=== PATIENT | female | born 1985 | race African-American/Black ===

== ENCOUNTER 2024-01-20 14:45 | Inpatient (IN) | payer BC ==
[2024-01-20 15:16] LABS: Absolute Eosinophils 0.1 K/uL (0-0.5); Absolute Lymphocytes (CBC) 2.9 K/uL (0.7-4.9); Absolute Monocytes 0.7 K/uL (0.1-1.3); Absolute Neutrophil 2.9 K/uL (1.8-8.0); Basophils % 0.4 % (0-1.3); Eosinophils % 2.1 % (0-4.4); Hemoglobin 10.7 g/dL (12.0-15.0); Lymphocytes % 43.2 % (15.3-44.8); MCH 22.3 pg (27.0-35.0); MCHC 31.6 g/dL (32.0-36.0); MCV 70.7 fL (80-100); MPV 8.2 fL (7.6-11.3); Monocytes % 10.8 % (3.3-12.3); Neutrophils % 43.5 % (41.7-73.7); Platelets 307 thou/uL (152-406); RBC Red Blood Cell Count 4.81 M/uL (3.86-4.86); Red Cell Distribution Width 14.9 % (12.1-15.2)
[2024-01-20 15:22] LABS: Arterial Blood Carboxyhemoglob 1.1 % (0-1.5); Blood Gas Oxyhemoglobin 90.9 % (94-97); Blood Gas THB 11.1 g/dl (12-18); Blood O2 Saturation 93.8 % (92-98.5)
[2024-01-20 15:41] LABS: ALT/SGPT 33 U/L (13-56); AST/SGOT 21 U/L (15-37); Albumin 2.9 g/dL (3.4-5.0); Albumin/Globulin Ratio 0.7 (1.1-1.8); Alkaline Phosphatase 153 U/L (45-117); Anion Gap 9.9 mEq/L (5.0-15.0); BUN Blood Urea Nitrogen 11 mg/dL (7-18); Bicarbonate 21 mEq/L (21-32); Bilirubin Direct < 0.2 mg/dL (0-0.2); Bilirubin Total 0.2 mg/dL (0.2-1.0); Globulin 4.4 g/dL (2.3-3.5); Glomerular Filtration Rate 126 ml/min (=/>90); Glucose Level 126 mg/dL (74-106); Magnesium 1.6 mg/dL (1.6-2.4); Potassium 3.9 mEq/L (3.5-5.1); Protein, Total 7.3 g/dL (6.4-8.2); Sodium Level 136 mEq/L (136-145)
[2024-01-20 15:42] LABS: Troponin High Sensitivity 178.9 pg/mL (<58.9)
--- NOTE | 2024-01-20 16:00 | RAD REPORT ---
EXAM DESCRIPTION: CT - Head Brain Wo Cont - 01/20/2024 3:11 pm CLINICAL HISTORY: ams COMPARISON: No comparisons TECHNIQUE: Noncontrast head CT images were obtained without IV contrast. Multiplanar reformats were generated and reviewed. All CT scans are performed using dose optimization technique as appropriate and may include automated exposure control or mA/KV adjustment according to patient size. FINDINGS: No intracranial hemorrhage, mass, or edema. Midline structures are unremarkable. Normal ventricular caliber for age. Pedroza-white matter differentiation is preserved, without evidence of acute infarct. No abnormal extra- axial fluid collections. Mastoid air cells and visualized portions of the paranasal sinuses are clear. No acute bony findings. IMPRESSION: No evidence of an acute intracranial process.
--- NOTE | 2024-01-20 16:02 | RAD REPORT ---
EXAM DESCRIPTION: [facility] Single View01/20/2024 3:28 pm CLINICAL HISTORY: ams COMPARISON: No comparisons TECHNIQUE: Portable AP view of the chest. FINDINGS: Mild central interstitial prominence versus decreased soft tissue related attenuation. The lungs are otherwise clear. No pneumothorax or effusion. The cardiomediastinal contours are unremark able. IMPRESSION: Questionable mild central interstitial prominence which may relate to mild central conge stion. No other acute cardiopulmonary process.
[2024-01-20] MEDS ORDERED: NA CHLORIDE 0.9% 1,000 ML ONE (16:17)
[2024-01-20 17:30] LABS: Specific Gravity < 1.005 (1.005-1.030); Sqamous Epithelial None Seen /HPF (None Seen); Urine Bacteria None Seen /HPF (<20); Urine Bilirubin NEGATIVE (Negative); Urine Blood 1+ (Negative); Urine Clarity Clear (Clear); Urine Color Colorless (Yellow); Urine Culture Reflex Order NOT NEEDED; Urine Glucose NEGATIVE (Negative); Urine Ketones NEGATIVE (Negative); Urine Micro Reflex YN NO BILL MICROSCOPIC; Urine Nitrite NEGATIVE (Negative); Urine Protein NEGATIVE (Negative); Urine RBC None Seen /HPF (None Seen); Urine Urobilinogen Normal (Normal); Urine WBC <5 /HPF (<5)
[2024-01-20 17:37] LABS: Barbiturates NEGATIVE (NEGATIVE); Benzodiazepines NEGATIVE (NEGATIVE); Cocaine NEGATIVE (NEGATIVE); METHAMPHETAM NEGATIVE (NEGATIVE); Methadone NEGATIVE (NEGATIVE); Opiates NEGATIVE (NEGATIVE); Phencyclidine NEGATIVE (NEGATIVE); THC Cannibis NEGATIVE (NEGATIVE)
--- NOTE | 2024-01-20 18:03 | ER ---
Nurse's Notes [facility] Name: Amanda Russell Age: 38 yrs Sex: Female : 1985 Arrival Date: 01/20/2024 Time: 14:45 Bed 13 Private MD: Diagnosis: Altered mental status;Elevated troponin Presentation: 01/19 14:51 Chief complaint: EMS states: "Has been having a headache for past several days, showed cp4 up to work today feeling disoriented". 14:51 Coronavirus screen: At this time, the client does not indicate any symptoms associated cp4 with coronavirus-19. Ebola Screen: No symptoms or risks identified at this time. Initial Sepsis Screen: Does the patient meet any 2 criteria? HR > 90 bpm. Yes Does the patient have a suspected source of infection? No. Patient's initial sepsis screen is negative. Risk Assessment: Do you want to hurt yourself or someone else? Patient reports no desire to harm self or others. Onset of symptoms was January 20, 2024. 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 - Infectious Disease History:: Denies. - Social history:: Smoking status: Patient denies any tobacco usage or history of. - Family history:: not pertinent. Screenin:52 [facility] ED Fall Risk Assessment (Adult) History of falling in the last 3 months, cp4 including since admission No falls in past 3 months (0 pts) Confusion or Disorientation Yes (5 pts) Intoxicated or Sedated No (0 pts) Impaired Gait No (0 pts) Mobility Assist Device Used No (0 pt) Altered Elimination No (0 pt) Score/Fall Risk Level 0 - 2 = Low Risk Oriented to surroundings, Maintained a safe environment. 14:52 Abuse screen: Denies threats or abuse. Nutritional screening: No deficits noted. cp4 Tuberculosis screening: No symptoms or risk factors identified. Assessment: 14:52 General: Appears uncomfortable, Behavior is cooperative, agitated. Pain: Complains of cp4 pain in head Pain currently is 5 out of 10 on a pain scale. Quality of pain is described as aching, Pain began 2-3 days ago. Is continuous. Neuro: Level of Consciousness is awake, alert, obeys commands, Oriented to person, place, time, situation. Cardiovascular: Patient's skin is warm and dry. Rhythm is regular. Respiratory: Airway is patent Respiratory effort is even, unlabored, Respiratory pattern is regular, symmetrical. GI: Abdomen is round non-distended, Abd is soft and non tender X 4 quads. : No signs and/or symptoms were reported regarding the genitourinary system. EENT: No signs and/or symptoms were reported regarding the EENT system. Derm: Skin is intact. 14:52 Musculoskeletal: Range of motion: intact in all extremities. cp4 15:08 Reassessment: Pt to CT scan via stretcher . aa5 Vital Signs: 14:51 BP 157 / 104; Pulse 117; Resp 18; Pulse Ox 99% on R/A; cp4 16:41 BP 150 / 104; Pulse 104; Resp 18; Pulse Ox 100% ; cp4 18:48 BP 104 / 88; Pulse 103; Resp 18; Pulse Ox 99% ; cp4 ED Course: 14:50 Patient arrived in ED. rg4 14:52 Patient has correct armband on for positive identification. Placed in gown. Bed in low cp4 position. Call light in reach. Side rails up X2. 14:52 No provider procedures requiring assistance completed. cp4 14:54 Juan David Galo MD is Attending Physician. rt 15:00 Triage completed. cp4 15:05 Initial lab(s) drawn, by me, sent to lab. aa5 15:05 Maintain EMS IV. Dressing intact. Good blood return noted. Site clean \\T\\ dry. Gauge \\T\\ aa 5 site: 20 G to R AC . 15:12 CT Head Brain wo Cont In Process Unspecified. EDMS 15:27 XRAY Chest (1 view) In Process Unspecified. EDMS 15:29 Karine Pascual is Primary Nurse. cp4 17:16 PREGU Sent. cp4 17:16 UAM Sent. cp4 17:16 UDS Sent. cp4 17:17 Urine collected: clean catch specimen, clear. cp4 18:01 Prince Eduardo MD is Hospitalizing Provider. rt 19:36 Patient admitted, IV remains in place. cp4 19:37 Provided Education on: admission. cp4 19:37 Arm band placed on right wrist. Patient placed in an exam room, on a stretcher. cp4 Administered Medications: 16:20 Drug: NS 0.9% IV 1000 ml IV at 1 bolus Per protocol; 1000 mL bolus Route: IV; Rate: 1 cp4 bolus; Site: right antecubital; 18:56 Follow up: Response: No adverse reaction; IV Status: Completed infusion cp4 Medication: 15:07 VIS not applicable for this client. cp4 Outcome: 18:02 Decision to Hospitalize by Provider. rt 19:36 Admitted to Med/surg accompanied by tech, via wheelchair, with chart, cp4 19:36 Condition: stable 19:36 Instructed on the need for admit, 19:37 Patient left the ED. cp4 Signatures: Dispatcher [employer] EDDahlia Dillon RN RN aa5 Chary Pizarro rg4 Juan David Galo MD MD rt Karine Pascual cp4
--- NOTE | 2024-01-20 18:03 | EDPHYS ---
Physician Documentation [facility] Name: Amanda Russell Age: 38 yrs Sex: Female : 1985 Arrival Date: 01/20/2024 Time: 14:45 Bed 13 Private MD: ED Physician Juan David Galo HPI: 01/19 16:16 This 38 yrs old Black Female presents to ER via EMS with complaints of Altered Mental rt Status. 16:16 Patient presents to the ED with an altered mental status. 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 Reportedly has been having a headache off and on for the past week. Patient presented and was significantly confused today. No further history could be obtained. Symptoms are moderate in severity, no other aggravating or alleviating factors.. 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 - Infectious Disease History:: Denies. - Social history:: Smoking status: Patient denies any tobacco usage or history of. - Family history:: not pertinent. ROS: 16:16 Unable to obtain ROS due to altered mental status, rt Exam: 16:16 Chest/axilla: Normal chest wall appearance and motion. Nontender with no deformity. rt No lesions are appreciated. Cardiovascular: Regular rate and rhythm with a normal S1 and S2. No gallops, murmurs, or rubs. Normal PMI, no JVD. No pulse deficits. Respiratory: Lungs have equal breath sounds bilaterally, clear to auscultation and percussion. No rales, rhonchi or wheezes noted. No increased work of breathing, no retractions or nasal flaring. Abdomen/GI: Soft, non-tender, with normal bowel sounds. No distension or tympany. No guarding or rebound. No evidence of tenderness throughout. Skin: Warm, dry with normal turgor. Normal color with no rashes, no lesions, and no evidence of cellulitis. MS/ Extremity: Pulses equal, no cyanosis. Neurovascular intact. Full, normal range of motion. 16:16 Constitutional: The patient appears Confused, uncooperative 16:16 ECG was reviewed by the Attending Physician. 16:16 Neuro: Clearly confused, moves all 4 extremities equally, strength and sensation intact in upper and lower extremities, no obvious cranial nerve deficits, Vital Signs: 14:51 BP 157 / 104; Pulse 117; Resp 18; Pulse Ox 99% on R/A; cp4 16:41 BP 150 / 104; Pulse 104; Resp 18; Pulse Ox 100% ; cp4 18:48 BP 104 / 88; Pulse 103; Resp 18; Pulse Ox 99% ; cp4 MDM: 14:54 Patient medically screened. rt 18:02 Differential Diagnosis: Substance abuse, head injury, intracranial hemorrhage, rt dysrhythmia. Data reviewed: vital signs, nurses notes, lab test result(s), EKG, radiologic studies. Consideration of Admission/Observation Patient was admitted/placed on observation. Management of patient was discussed with the following: Hospitalist: Agrees to admit. I considered the following discharge prescriptions or medication management in the emergency department Medications were administered in the Emergency Department. See MAR. Independent interpretation of the following test(s) in the Emergency Department CT Scan: My interpretation is No intracranial hemorrhage seen on my interpretation of CT scan images. Care significantly affected by the following chronic conditions: Hypertension. Counseling: I had a detailed discussion with the patient and/or guardian regarding the historical points, exam findings, and any diagnostic results supporting the discharge/admit diagnosis, lab results, radiology results, the need for further work-up and treatment in the hospital. Response to treatment: the patient's symptoms have markedly improved after treatment. 01/19 14:57 Order name: Basic Metabolic Panel; Complete Time: 15:44 rt 01/19 14:57 Order name: CBC with Diff; Complete Time: 15:44 rt 01/19 14:57 Order name: LFT's; Complete Time: 15:44 rt 01/19 14:57 Order name: Magnesium; Complete Time: 15:44 rt 01/19 14:57 Order name: Troponin HS; Complete Time: 15:44 rt 01/19 14:57 Order name: ETOH Level; Complete Time: 15:44 rt 01/19 14:57 Order name: UDS; Complete Time: 17:38 rt 01/19 14:57 Order name: UAM; Complete Time: 17:38 rt 01/19 14:57 Order name: PREGU; Complete Time: 17:38 rt 01/19 14:57 Order name: ABG: vbg ok; Complete Time: 15:44 rt 01/19 15:42 Order name: CPK; Complete Time: 16:10 aa5 01/19 14:57 Order name: XRAY Chest (1 view); Complete Time: 16:10 rt 01/19 14:57 Order name: CT Head Brain wo Cont; Complete Time: 16:10 rt 01/19 18:20 Order name: Brain Wo Cont EDMS 01/19 14:57 Order name: EKG; Complete Time: 14:58 rt 01/19 14:57 Order name: Cardiac monitoring; Complete Time: 15:08 rt 01/19 14:57 Order name: EKG - Nurse/Tech; Complete Time: 15:26 rt 01/19 14:57 Order name: IV Saline Lock; Complete Time: 15:08 rt 01/19 14:57 Order name: Labs collected and sent; Complete Time: 15:08 rt 01/19 14:57 Order name: O2 Per Protocol; Complete Time: 15:08 rt 01/19 14:57 Order name: O2 Sat Monitoring; Complete Time: 15:08 rt EC:16 Rate is 101 beats/min. Rhythm is regular, Normal Sinus Rhythm with No ectopy. QRS [place] rt is Normal. TN interval is normal. QRS interval is normal. QT interval is normal. No Q waves. T waves are Normal. No ST changes noted. Interpreted by me. Administered Medications: 16:20 Drug: NS 0.9% IV 1000 ml IV at 1 bolus Per protocol; 1000 mL bolus Route: IV; Rate: 1 cp4 bolus; Site: right antecubital; 18:56 Follow up: Response: No adverse reaction; IV Status: Completed infusion cp4 Disposition Summary: 01/20/24 18:02 Hospitalization Ordered Notes: Hospitalization Status: Observation rt Provider: Prince Jayce rt Location: Telemetry/MedSurg (observation) rt Condition: Stable rt Problem: new rt Symptoms: have improved rt Bed/Room Type: Standard rt Room Assignment: 411(01/20/24 18:32) bc6 Diagnosis - Altered mental status rt - Elevated troponin rt Forms: - Medication Reconciliation Form rt - SBAR form rt - Leadership Thank You Letter rt Signatures: Dispatcher [employer] Juan David Noble MD MD rt Yue Tinoco bc6 Karine Pascual cp4 Corrections: (The following items were deleted from the chart) 14:58 14:57 BASIC METABOLIC PANEL+C.LAB.BRZ ordered. EDMS EDMS 14:58 14:57 CBC+H.LAB.BRZ ordered. EDMS EDMS 14:58 14:57 HEPATIC FUNCTION+C.LAB.BRZ ordered. EDMS EDMS 14:58 14:57 MAGNESIUM+C.LAB.BRZ ordered. EDMS EDMS 14:58 14:57 Troponin High Sensitivity+C.LAB.BRZ ordered. EDMS EDMS 14:58 14:57 ETHANOL+C.LAB.BRZ ordered. EDMS EDMS 14:58 14:57 URINE DRUG SCREEN+UC.LAB.BRZ ordered. EDMS EDMS 14:58 14:57 Urinalysis W/Microscopic+U.LAB.BRZ ordered. EDMS EDMS 14:58 14:57 Test, Urine+UC.LAB.BRZ ordered. EDMS EDMS 18:32 18:02 rt bc6
--- NOTE | 2024-01-20 18:28 | P.HP ---
Certification for Inpatient Patient admitted to: Inpatient With expected LOS: >2 Midnights Practitioner: I am a practitioner with admitting privileges, knowledge of patient current condition, hospital course, and medical plan of care. Services: Services provided to patient in accordance with Admission requirements found in Title 42 Section 412.3 of the Code of Federal Regulations Patient History Date of Service: 01/20/24 Reason for admission: cva rule out History of Present Illness: Patient is a 38-year-old -[place] male with a past medical history of hypertension and thyroid disease but noncompliant on medications. She presented to the ER complaining of intractable headache ongoing for the past 2 weeks. Her symptoms been progressively worsening. Eventually the patient started experiencing left-sided weakness. Other associated symptoms include chest pain and palpitations. She was brought in here in the ER for further evaluation. CT head ruled out intracranial bleeding. Patient has a troponin of 178. Her EKG showed sinus tachycardia without ST depressions or elevations. During my evaluation, patient's vitals were within normal limits. She has left-sided weakness both upper and lower extremities. Allergies No Known Allergies Allergy (Verified 01/20/24 19:58) Home Medications: methIMAzole [Tapazole] 10 mg PO DAILY 01/20/24 Physical Examination - Physical Exam General: Other (Lethargic for age) HEENT: Atraumatic, Normocephalic Respiratory: Clear to auscultation bilaterally, Normal air movement Cardiovascular: No edema, Normal pulses, Regular rate/rhythm, Other (Tachycardic) Neurological: Other (Left-sided weakness) - Studies Laboratory Data (last 24 hrs) 01/20/24 01/20/24 15:05 15:05 WBC 6.70 Hgb 10.7 L Hct 34.0 L Plt Count 307 Sodium 136 Potassium 3.9 BUN 11 Creatinine 0.47 L Glucose 126 H Magnesium 1.6 Total Bilirubin 0.2 AST 21 ALT 33 Alkaline Phosphatase 153 H Assessment and Plan - Problems (Diagnosis) (1) Elevated troponin Current Visit: Yes Status: Acute (2) Left-sided weakness Current Visit: Yes Status: Acute (3) Intractable headache Current Visit: Yes Status: Acute (4) Hypertension Current Visit: Yes Status: Acute - Plan Assessment Patient is a 38-year-old -[place] female with a past medical history of hypertension and thyroid disease who is being admitted after she presented with intractable headache and left-sided weakness. CT head ruled out intracranial abnormalities. Patient has elevated troponin at 178. She had complained of c hest pain at some point. Her EKG showed sinus tachycardia. Additional workup revealed suppressed TSH and elevated free T4 and free T3. Her symptoms could also be explained by thyroid storm. Thyrotoxicosis Will admit patient's under telemetry EKG with sinus tachycardia Will start patient on scheduled propranolol, PTU and IV hydrocortisone Repeat thyroid function test 1 to 2 days She can be discharged on methimazole, which is her usual medication but she has been noncompliant. Headache and left-sided weakness She will be admitted under observation for CVA rule out We will get a formal brain MRI and CT head and neck 2D echo ordered as well Follow lipid panel and hemoglobin A1c PT/OT ordered for weakness Elevated troponin Patient has a history of hypertension but noncompliant on medications She is tachycardic. This can now explain her troponin leak. EKG without ischemic changes Other reason include pulmonary embolism although she is a low risk. She is not hypoxic Will go ahead and trend troponin, obtain D-dimer 2D echo ordered Follow lipid panel and hemoglobin A1c Will admit under telemetry Hypertension Start antihypertensive regimen once CVA has been ruled out Microcytic anemia Mild iron deficiency anemia as per iron panel Hb of 10.1 Will hold off iron transfusion She can be discharged on oral iron therapy DVT prophylaxisLovenox DispoHome when medically cleared CODE STATUSfull code - Advance Directives Does patient have a Living Will: No Does patient have a Durable POA for Healthcare: No
[2024-01-20] MEDS: ASPIRIN EC 81 MG TAB PO ONE (18:59)
[2024-01-20] MEDS: KETOROLAC 30 MG/ML INJ IV ONE (20:16)
[2024-01-20] MEDS: ATORVASTATIN 40 MG TAB PO SCH (20:16)
--- NOTE | 2024-01-20 20:50 | RAD REPORT ---
EXAM DESCRIPTION: CT - Head angio - 01/20/2024 7:07 pm CLINICAL HISTORY: r/o cva COMPARISON: Head Brain Wo Cont dated 01/20/2024 TECHNIQUE: Axial CT angiography images of the head was performed with multiplanar and maximum intens ity projection reconstructions. Images performed following intravenous administration of 92mL Isovue 370. All CT scans are performed using dose optimization technique as appropriate and may include automated exposure control or mA/KV adjustment according to patient size. FINDINGS: No evidence of large vessel occlusion. No evidence of aneurysm or dissection flap is detec vernon. No flow-limiting stenosis or vascular malformation identified. Antegrade flow is seen in the vertebral arteries. The vertebral arteries are codominant. The visualized dural venous sinuses are grossly patent. IMPRESSION: No evidence of large vessel occlusion or flow-limiting stenosis.
--- NOTE | 2024-01-20 20:52 | RAD REPORT ---
EXAM DESCRIPTION: CT - Neck Angio - 01/20/2024 7:08 pm CLINICAL HISTORY: r/o cva COMPARISON: No comparisons TECHNIQUE: Axial CT angiography images of the neck was performed with multiplanar and maximum intens ity projection reconstructions. Images performed following intravenous administration of 92mL Isovue 370. All CT scans are performed using dose optimization technique as appropriate and may include automated exposure control or mA/KV adjustment according to patient size. Quantification of carotid stenosis, if any, is performed according to NASCET criteria. FINDINGS: A left aortic arch is identified with normal three vessel configuration of the great vesse ls. No significant flow abnormality is seen of the common carotid bilaterally. No significant stenosis is identified involving the cervical segments of both internal carotid arteri es. Normal flow is seen within both vertebral arteries. IMPRESSION: No significant flow abnormality of the neck vessels is identified. CAROTID STENOSIS REFERENCE USING NASCET CRITERIA: % ICA stenosis = (1 - narrowest ICA diameter/diameter of distal cervical ICA) x 100. Mild - <50% stenosis. Moderate - 50-69% stenosis. Severe - 70-94% stenosis. Near occlusion - 95-99% stenosis. Occluded - 100% stenosis.
[2024-01-20 21:11] LABS: Ferritin 46.6 ng/mL (8-388); HDL Cholesterol 61 mg/dL (40-60); LDL Cholesterol, Calculated 69 mg/dL (<130); LDL Cholesterol,Calc NonReport 69
[2024-01-20 21:16] LABS: Thyroid Stimulating Hormone < 0.005 uIU/mL (0.358-3.740)
[2024-01-20] MEDS: ACETAMINOPHEN 325 MG TABLET PO PRN (21:36)
[2024-01-20] MEDS: PROPRANOLOL HCL 60 MG SA CAP PO SCH (21:41)
[2024-01-20] MEDS: PROPYLTHIOURACIL 50 MG TAB PO SCH ×2 (21:41→23:00)
[2024-01-20] MEDS: HYDROCORTISONE SUC 100 MG INJ IV SCH (22:26)
[2024-01-20 22:54] VITALS: BMI 27.2
[2024-01-20] MEDS: PROPRANOLOL HCL 10 MG TAB PO SCH (23:07)
[2024-01-21] MEDS: MELATONIN 3 MG TABLET PO PRN ×3 (00:49→22:53)
[2024-01-21] MEDS: BENZONATATE 100 MG CAP PO PRN (00:49)
[2024-01-21] MEDS: ZOLPIDEM TARTRATE 5 MG TABLET PO PRN ×2 (04:11→21:29)
--- NOTE | 2024-01-21 08:56 | RAD REPORT ---
EXAM DESCRIPTION: CT - Chest Angio - 01/21/2024 8:28 am CLINICAL HISTORY: R/O PE COMPARISON: Chest Single View dated 01/20/2024 TECHNIQUE: Thin axial CT images of the chest were obtained following administration of 85 mL Isovue 370 IV contrast. Multiplanar reconstructions, and maximum intensity projection reconstructions were g enerated and reviewed. Exam utilizes a protocol for optimal evaluation of pulmonary arterial tree. All CT scans are performed using dose optimization technique as appropriate and may include automated exposure control or mA/KV adjustment according to patient size. FINDINGS: Pulmonary arteries are normal. No emboli or other suspicious finding. No acute or signific ant aorta findings. No mass or infiltrate in the lung parenchyma. No pleural thickening or pleural effusion. No pneumotho rax. No abnormal mediastinal or hilar masses or lymphadenopathy seen. No chest wall mass or abnormal axill iary lymphadenopathy. IMPRESSION: No evidence of acute central pulmonary emboli. Negative CT scan of the chest for other significant findings.
[2024-01-21] MEDS: ASPIRIN EC 81 MG TAB PO SCH (09:34)
[2024-01-21] MEDS: ENOXAPARIN 80 MG/0.8 ML SQ SCH (09:36)
--- NOTE | 2024-01-21 09:52 | RAD REPORT ---
EXAM DESCRIPTION: MRI - Brain Wo Cont - 01/21/2024 9:23 am CLINICAL HISTORY: cva; left side weakness COMPARISON: Head CT 01/20/2024 TECHNIQUE: Multiplanar multisequence MRI of the brain performed without IV contrast. FINDINGS: No evidence of acute infarct or other diffusion signal abnormality. No evidence of acute intracranial hemorrhage or abnormal extra-axial fluid collections. Ventricular caliber within normal for age. Midline structures are unremarkable. No white matter signal abnormalities. No mass effect or midline shift. Major vascular flow voids are preserved. Mastoid air cells are well aerated. Mild inflammatory mucosal thickening in the left maxillary sinus and right ethmoidal air cells. IMPRESSION: No acute intracranial process. No evidence of ventriculomegaly or mass effect. Mild inflammatory paranasal sinus mucosal thickening.
--- NOTE | 2024-01-21 15:41 | EKG ---
Test Date: 2024-01-21 Test Time: 03:09:55 Mining Captain: FELICITA, MEASUREMENT RESULTS: Intervals: Rate: 92 SC: 126 QRSD: 80 QT: 346 QTc: 427 [place]: P: 10 SC: 126 QRS: 92 T: 9 INTERPRETIVE STATEMENTS: Normal sinus rhythm Possible Right ventricular hypertrophy Abnormal ECG Compared to ECG 01/20/2024 15:23:14 Sinus tachycardia no longer present Electronically Signed On 01-21-24 15:40:22 CDT by Aditya Arora
--- NOTE | 2024-01-21 15:43 | EKG ---
Test Date: 2024-01-20 Test Time: 15:23:14 Bridge Opener: FUENTES MEASUREMENT RESULTS: Intervals: Rate: 101 [place]: 132 QRSD: 82 QT: 344 QTc: 446 [place]: P: 66 [place]: 132 QRS: 79 T: 56 INTERPRETIVE STATEMENTS: Sinus tachycardia Otherwise normal ECG No previous ECG available for comparison Electronically Signed On 01-21-24 15:41:06 CDT by Aditya Arora
--- NOTE | 2024-01-21 17:16 | P.PN ---
Subjective Date of Service: 01/21/24 Chief Complaint: cva rule out Pt is resting comfortably in bed. She reports slight chest pain with deep inspiration. The left sided numbness has resolved. CTA chest is unremarkable. MRI brain and CTA head /neck are unremarkable. She has not been compliant with methimazole at home. She is ins search of a new artifacts conservator. No other complaints. Review of Systems General: Unremarkable Eyes: Unremarkable ENT: Unremarkable Respiratory: Unremarkable Cardiovascular: Unremarkable Gastrointestinal: Unremarkable Genitourinary: Unremarkable Musculoskeletal: Unremarkable Integumentary: Unremarkable Neurological: Unremarkable Lymphatics: Unremarkable Physical Examination - Vital Signs Temperature: 97.1 F Blood Pressure: 162/87 Pulse: 89 Respirations: 16 Pulse Ox (%): 100 - Physical Exam General: Alert, In no apparent distress, Oriented x3 HEENT: Atraumatic, Normocephalic, PERRLA Neck: Supple, 2+ carotid pulse no bruit Respiratory: Clear to auscultation bilaterally, Normal air movement Cardiovascular: No edema, Normal pulses, Regular rate/rhythm Capillary refill: <2 Seconds Gastrointestinal: Normal bowel sounds, Soft and benign, Non-distended Musculoskeletal: No clubbing, No swelling, No contractures Integumentary: No rashes, No breakdown, No significant lesion Neurological: Normal speech, Normal strength at 5/5 x4 extr, Normal tone Lymphatics: No axilla or inguinal lymphadenopathy Assessment And Plan - Plan Thyrotoxicosis: TSH is 0.005 ad free t4 is 4.19. Pt is not compliant with methimazole at home. Will continue propranolol, hydrocortisone and methimazole. She need to follow with an artifacts conservator. Headache and left-sided weakness: CT head and MRI brain are unremarkable. CTA head/neck is unremarkable. Will f/u 2D echo, lipid panel and hemoglobin A1c PT/OT ordered for weakness NSTEMI/Elevated troponin: troponin is 155 <- 187 <- 178. Will r/o ACS. Consulted cardiology. Continue therapeutic lovenox. Likely du eto uncontrolled htn. EKG shows no ST changes. D-dimer is also elevated but there is no PE on CTA chest. Will f/u Echo Elevated D-dimer: We started empiric therapeutic lovenox. CTA chest is negative for PE. Patient has a history of hypertension but noncompliant on medications Hypertension: Will continue amlodipine and propranolo. Microcytic anemia: hgb is 10.7. MCV is 70.7. Will give ferrous sulfate. Monitor H/H. DVT ppx: lovenox Code: full Dispo: pending hospital course.
[2024-01-22] MEDS: AMLODIPINE 10 MG TAB PO SCH (08:15)
[2024-01-22 09:14] LABS: Hematocrit 33.2 % (36.0-45.0); Hemoglobin 10.5 g/dL (12.0-15.0); MCH 22.4 pg (27.0-35.0); MCHC 31.7 g/dL (32.0-36.0); MCV 70.6 fL (80-100); MPV 8.6 fL (7.6-11.3); Platelets 292 thou/uL (152-406); Red Cell Distribution Width 15.1 % (12.1-15.2)
[2024-01-22 09:15] LABS: Anion Gap 9.8 mEq/L (5.0-15.0); Potassium 3.8 mEq/L (3.5-5.1)
[2024-01-22 09:16] LABS: Troponin High Sensitivity 142.6 pg/mL (<58.9)
[2024-01-22 10:08] LABS: Anisocytosis 1+; Blood Morphology Comment NOTED (NOT SEEN); Differential Total Cells Count 100; Lymphocytes 24 % (15-42); Monocytes 0 % (0-10); Platelet Estimate ADEQ; Segmented Neutrophils 76 % (40-80)
[2024-01-22 10:09] LABS: Hypochromasia 2+; Microcytosis 2+
--- NOTE | 2024-01-22 11:57 | P.CNS ---
Date of Consult: 01/22/24 Chief Complaint: cva rule out History of Present Illness: Patient with no significant PMH presented with chest pain and headache that started yesterday, desrive chest pain as mid epigastric, no radiation, still going, denies any other cardiac symptoms. Allergies No Known Allergies Allergy (Verified 01/20/24 19:58) Home Medications: methIMAzole [Tapazole] 10 mg PO DAILY 01/20/24 - Past Medical/Surgical History Diabetic: No -: hypothyroidism - Social History Place of Residence: Home Review of Systems 10-point ROS is otherwise unremarkable Physical Examination Temp Pulse Resp BP Pulse Ox 97.4 F 87 18 163/91 H 97 01/22/24 08:00 01/22/24 11:40 01/22/24 08:00 01/22/24 11:40 01/22/24 08:00 General: Alert, In no apparent distress HEENT: Atraumatic, PERRLA, Mucous membr. moist/pink, EOMI, Sclerae nonicteric Neck: Supple, 2+ carotid pulse no bruit, No LAD, Without JVD or thyroid abnormality Respiratory: Clear to auscultation bilaterally, Normal air movement Cardiovascular: Regular rate/rhythm, Normal S1 S2 Gastrointestinal: Normal bowel sounds, Tenderness (mid epigastric area) Musculoskeletal: No tenderness Integumentary: No rashes Neurological: Normal gait, Normal speech, Normal tone, Normal affect Lymphatics: No axilla or inguinal lymphadenopathy - Problems (1) Hyperthyroidism Current Visit: Yes Status: Acute Plan: that is the reason for patient tachycardia, agree with Inderal Endocrinology consult. (2) Elevated troponin Current Visit: Yes Status: Acute Plan: patient chest pain is atypical, located in mid epigastric area and reproducible on exam, patient troponin leak can be secondary to thyrotoxicosis vs hypertensive urgency. stop lovenox in 48 hours. agree with Echo No further cardiac work up needed as inpatient. (3) Hypertension Current Visit: Yes Status: Acute Plan: Patient BP still elevated, on Inderal and started on Norvasc. Monitor and will treat accordingly.
[2024-01-22 18:02] LABS: Thyroid Stimulating Hormone < 0.005 uIU/mL (0.358-3.740)
--- NOTE | 2024-01-22 18:19 | P.PN ---
Subjective Date of Service: 01/22/24 Chief Complaint: cva rule out Pt is resting comfortably in bed. She reports slight substernal chest pain with deep inspiration. Waiting for Cardiology eval. The left sided numbness has resolved. CTA chest is unremarkable. MRI brain and CTA head /neck are unremarkable. She has not been compliant with methimazole at home. She is in search of a new client support coordinator. No other complaints. Review of Systems General: Unremarkable Eyes: Unremarkable ENT: Unremarkable Respiratory: Unremarkable Cardiovascular: Unremarkable Gastrointestinal: Unremarkable Genitourinary: Unremarkable Musculoskeletal: Unremarkable Integumentary: Unremarkable Neurological: Unremarkable Lymphatics: Unremarkable Physical Examination - Vital Signs Temperature: 97.1 F Blood Pressure: 137/82 Pulse: 93 Respirations: 16 Pulse Ox (%): 100 - Physical Exam General: Alert, In no apparent distress, Oriented x3 HEENT: Atraumatic, Normocephalic, PERRLA Neck: Supple, 2+ carotid pulse no bruit Respiratory: Clear to auscultation bilaterally, Normal air movement Cardiovascular: No edema, Normal pulses, Regular rate/rhythm, Normal S1 S2 Capillary refill: <2 Seconds Gastrointestinal: Normal bowel sounds, Soft and benign, Non-distended Musculoskeletal: No clubbing, No swelling Integumentary: No rashes, No breakdown, No significant lesion Neurological: Normal speech, Normal strength at 5/5 x4 extr, Normal tone Lymphatics: No axilla or inguinal lymphadenopathy Assessment And Plan - Plan Thyrotoxicosis: TSH is 0.005<- 0.005 ad free t4 is 4.35<- 4.19. Pt was not compliant with methimazole at home. Will continue propranolol, hydrocortisone and methimazole. She need to follow with an client support coordinator. Headache and left-sided weakness: resolved. CT head and MRI brain are unremarkable. CTA head/neck is unremarkable. Will f/u 2D echo, lipid panel and hemoglobin A1c PT/OT ordered for weakness NSTEMI/Elevated troponin: troponin is 155 <- 187 <- 178. Likely due to Htn and thyrotoxicosis. No further cardiac work up per Cardiology. Will dc therapeutic lovenox. EKG shows no ST changes. D-dimer is also elevated but there is no PE on CTA chest. Will f/u Echo Elevated D-dimer: We started empiric therapeutic lovenox. CTA chest is negative for PE. Hypertension: Will continue amlodipine and propranolol. Microcytic anemia: hgb is 10.5<- 10.7. MCV is 70.6<- 70.7. Will give ferrous sulfate. Monitor H/H. DVT ppx: lovenox Code: full Dispo: pending hospital course.
[2024-01-23 06:47] LABS: Absolute Lymphocytes (CBC) 3.6 K/uL (0.7-4.9); Absolute Monocytes 0.7 K/uL (0.1-1.3); Absolute Neutrophil 5.9 K/uL (1.8-8.0); Basophils % 0.2 % (0-1.3); Eosinophils % 0.1 % (0-4.4); Hematocrit 32.2 % (36.0-45.0); Hemoglobin 10.3 g/dL (12.0-15.0); Lymphocytes % 35.6 % (15.3-44.8); MCH 22.6 pg (27.0-35.0); MCHC 31.9 g/dL (32.0-36.0); Monocytes % 6.5 % (3.3-12.3); Neutrophils % 57.6 % (41.7-73.7); Nucleated Red Blood Cells % 0.1 % (0-0); Platelets 302 thou/uL (152-406); RBC Red Blood Cell Count 4.54 M/uL (3.86-4.86); Red Cell Distribution Width 14.9 % (12.1-15.2)
[2024-01-23 06:49] LABS: Anion Gap 9.5 mEq/L (5.0-15.0); Potassium 3.5 mEq/L (3.5-5.1)
--- NOTE | 2024-01-23 08:21 | P.PN ---
Subjective Date of Service: 01/23/24 Chief Complaint: cva rule out Pt is resting comfortably in bed. She reports slight substernal chest pain with deep inspiration. CTA chest ia negative for PE. Stopped the lovenox because the elevated troponin is due to thyrotoxicosis. The left sided numbness has resolved. CTA chest is unremarkable. MRI brain and CTA head /neck are unremarkable. She was not compliant with methimazole at home. She is in search of a new flake or shred roll operator. No other complaints. Review of Systems General: Unremarkable Eyes: Unremarkable ENT: Unremarkable Respiratory: Unremarkable Cardiovascular: Chest Pain Gastrointestinal: Unremarkable Genitourinary: Unremarkable Musculoskeletal: Unremarkable Integumentary: Unremarkable Neurological: Unremarkable Lymphatics: Unremarkable Physical Examination - Vital Signs Temperature: 98.1 F Blood Pressure: 167/94 Pulse: 89 Respirations: 16 Pulse Ox (%): 97 - Physical Exam General: Alert, In no apparent distress, Oriented x3 HEENT: Atraumatic, Normocephalic, PERRLA Neck: Supple, 2+ carotid pulse no bruit, JVD not distended Respiratory: Clear to auscultation bilaterally, Normal air movement Cardiovascular: No edema, Normal pulses, Regular rate/rhythm, Normal S1 S2 Capillary refill: <2 Seconds Gastrointestinal: Normal bowel sounds, Soft and benign, Non-distended Musculoskeletal: No clubbing, No swelling, No contractures Integumentary: No rashes, No breakdown, No significant lesion Neurological: Normal speech, Normal strength at 5/5 x4 extr, Normal tone, Sensation intact Lymphatics: No axilla or inguinal lymphadenopathy - Studies Laboratory Data (last 24 hrs) 01/22/24 01/22/24 08:45 08:45 WBC 6.90 Hgb 10.5 L Hct 33.2 L Plt Count 292 Sodium 139 Potassium 3.8 BUN 10 Creatinine 0.55 Glucose 148 H Assessment And Plan - Plan Thyrotoxicosis: TSH is 0.005<- 0.005 ad free t4 is 4.35<- 4.19. Pt was not compliant with methimazole at home. Will continue propranolol, hydrocortisone and methimazole. She needs to follow with an flake or shred roll operator. Headache and left-sided weakness: resolved. CT head and MRI brain are unremarkable. CTA head/neck is unremarkable. Will f/u 2D echo, lipid panel and hemoglobin A1c. PT/OT ordered for weakness NSTEMI/Elevated troponin: troponin is 155 <- 187 <- 178. Likely due to Htn and thyrotoxicosis. No further cardiac work up per Cardiology. Will dc therapeutic lovenox. EKG shows no ST changes. D-dimer is also elevated but there is no PE on CTA chest. Will f/u Echo Elevated D-dimer: We started empiric therapeutic lovenox. CTA chest is negative for PE. Hypertension: Will continue amlodipine, lisinopril and propranolol. Microcytic anemia: hgb is 10.5<- 10.7. MCV is 70.6<- 70.7. Will give ferrous sulfate. Monitor H/H. DVT ppx: lovenox Code: full Dispo: pending hospital course.
[2024-01-23] MEDS: lisinopriL 10 MG TAB PO SCH (09:03)
--- NOTE | 2024-01-23 11:56 | P.PN ---
Subjective Date of Service: 01/23/24 Chief Complaint: cva rule out Subjective: No new changes, No C/O voiced, Tolerating diet, Ambulating, Improving Review of Systems 10-point ROS is otherwise unremarkable Physical Examination - Vital Signs Temperature: 98.1 F Blood Pressure: 167/94 Pulse: 89 Respirations: 16 Pulse Ox (%): 97 - Physical Exam General: Alert, In no apparent distress HEENT: Atraumatic, PERRLA, EOMI Neck: Supple, JVD not distended Respiratory: Clear to auscultation bilaterally, Normal air movement Cardiovascular: Regular rate/rhythm, Normal S1 S2 Gastrointestinal: Normal bowel sounds, No tenderness Musculoskeletal: No tenderness Integumentary: No rashes Neurological: Normal speech, Normal tone, Normal affect Lymphatics: No axilla or inguinal lymphadenopathy - Studies Medications List Reviewed: Yes Assessment And Plan - Current Problems (Diagnosis) (1) Hyperthyroidism Current Visit: Yes Status: Acute Plan: that is the reason for patient tachycardia, Increase Inderal to 80 mg po q6 hours. Endocrinology consult. (2) Elevated troponin Current Visit: Yes Status: Acute Plan: patient chest pain is atypical, located in mid epigastric area and reproducible on exam, patient troponin leak can be secondary to thyrotoxicosis vs hypertensive urgency. agree with Echo (can be done as outpatient is patient is ready to be discharged) No further cardiac work up needed as inpatient. (3) Hypertension Current Visit: Yes Status: Acute Plan: Patient BP still elevated, on Inderal, will increase dose Continue Norvasc and lisinopril. Monitor and will treat accordingly.
[2024-01-23] MEDS: PROPRANOLOL HCL 40 MG TAB PO SCH (12:13)
[2024-01-23 12:25] VITALS: O2SAT 100
--- NOTE | 2024-01-23 14:45 | P.DS ---
Admission Date: 01/22/24 Discharge Date: 01/23/24 Disposition: ROUTINE DISCHARGE Discharge Condition: GOOD Reason for Admission: cva rule out Brief History of Present Illness: Patient is a 38-year-old -[place] male with a past medical history of hypertension and thyroid disease but noncompliant on medications. She presented to the ER complaining of intractable headache ongoing for the past 2 weeks. Her symptoms been progressively worsening. Eventually the patient started experiencing left-sided weakness. Other associated symptoms include chest pain and palpitations. She was brought in here in the ER for further evaluation. CT head ruled out intracranial bleeding. Patient has a troponin of 178. Her EKG showed sinus tachycardia without ST depressions or elevations. During my evaluation, patient's vitals were within normal limits. She has left-sided weakness both upper and lower extremities. Hospital Course: Patient is a 38yo female with past medical history of hypertension and thyroid disease, non-compliance with home med who presented with intractable headache, left-sided weakness, chest pain, and palpitations. Pt came to the ER for further evaluation. On admission, CT head ruled out intracranial bleeding. Patient had elevated troponin of 178, TSH 0.005 and free T4 4.19. Her EKG showed sinus tachycardia without ST depressions or elevations. We admitted pt to rule out CVA. CT head and MRI were unremarkable. CTA head/neck was unremarkable. We continued methimazole, propranolol and hydrocortisone for the hyperthyroidism: TSH is 0.005<- 0.005 ad free t4 is 4.35<- 4.19. Pt was not compliant with methimazole at home. We advised her to be compliant with home meds and follow up with an jig and fixture builder within 1 week. The troponin trended down (155 <- 187 <- 178), likely due to hyperthyroidism.We initially started therapeutic lovenox until Cardiology saw her. Cardiology attributed to the elevated troponin to hyperthyroidism. D-dimer was also elevated but there was no PE on CTA chest. We optimized BP regimen with amlodipine, lisinopril and propranolol. Pt was also discharged with ferrous sulfate for microcytic anemia. Pt was in NAD prior to discharge. Vital Signs/Physical Exam: Temp Pulse Resp BP Pulse Ox 97.8 F 91 H 18 152/87 H 100 01/23/24 12:00 01/23/24 12:13 01/23/24 12:00 01/23/24 12:13 01/23/24 12:00 Laboratory Data at Discharge: WBC 10.20 thou/uL (4.3-10.9) 01/23/24 05:34 Hgb 10.3 g/dL (12.0-15.0) L 01/23/24 05:34 Hct 32.2 % (36.0-45.0) L 01/23/24 05:34 Plt Count 302 thou/uL (152-406) 01/23/24 05:34 Sodium 140 mEq/L (136-145) 01/23/24 05:34 Potassium 3.5 mEq/L (3.5-5.1) 01/23/24 05:34 BUN 12 mg/dL (7-18) 01/23/24 05:34 Creatinine 0.47 mg/dL (0.55-1.02) L 01/23/24 05:34 Glucose 126 mg/dL (74-106) H 01/23/24 05:34 Magnesium 1.6 mg/dL (1.6-2.4) 01/20/24 15:05 Total Bilirubin 0.2 mg/dL (0.2-1.0) 01/20/24 15:05 AST 21 U/L (15-37) 01/20/24 15:05 ALT 33 U/L (13-56) 01/20/24 15:05 Alkaline Phosphatase 153 U/L (45-117) H 01/20/24 15:05 Triglycerides 59 mg/dL (<150) 01/20/24 20:21 Cholesterol 142 mg/dL (<200) 01/20/24 20:21 HDL Cholesterol 61 mg/dL (40-60) H 01/20/24 20:21 Cholesterol/HDL Ratio 2.33 01/20/24 20:21 Home Medications: methIMAzole [Tapazole*] 10 mg PO DAILY 01/20/24 Amlodipine [Norvasc*] 10 mg PO DAILY 60 Days #60 tab 01/23/24 Aspirin [Aspirin EC] 81 mg PO DAILY 90 Days #90 tab 01/23/24 Atorvastatin Calcium [Lipitor] 40 mg PO BEDTIME 90 Days #90 tab 01/23/24 Propranolol [Inderal*] 80 mg PO Q6H 30 Days #120 tab 01/23/24 lisinopriL [Prinivil*] 10 mg PO DAILY 60 Days #60 tab 01/23/24 methIMAzole [Tapazole*] 20 mg PO Q6H 30 Days #120 tab 01/23/24 New Medications: Aspirin [Aspirin EC] 81 mg PO DAILY 90 Days #90 tab Propranolol [Inderal*] 80 mg PO Q6H 30 Days #120 tab Atorvastatin Calcium [Lipitor] 40 mg PO BEDTIME 90 Days #90 tab Amlodipine [Norvasc*] 10 mg PO DAILY 60 Days #60 tab lisinopriL [Prinivil*] 10 mg PO DAILY 60 Days #60 tab methIMAzole [Tapazole*] 20 mg PO Q6H 30 Days #120 tab Physician Discharge Instructions: Continue ad dung activity. Take the amlodipine, lisinopril, methimazole and propranolol as prescribed. Follow up with an Coffee Grower and PCP within 1 week. Diet: AHA Activity: Ad dung Followup: NONE,NONE [Primary Care Provider] -
[2024-01-23 16:57] VITALS: BP 155/84; TEMP 97.4
--- NOTE | 2024-01-25 06:54 | ECHO ---
HEIGHT: 5 ft 8 in WEIGHT: 179 lb 0 oz DATE OF STUDY: 01/21/[address]: Prince Grecia Eduardo MD 2-DIMENSIONAL: YES M.MODE: YES DOPPLER: YES COLOR FLOW: YES TDS: PORTABLE: YES DEFINITY: BUBBLE STUDY: DIAGNOSIS: CHEST PAIN/ HYPERTENSION CARDIAC HISTORY: CATHERIZATION: SURGERY: PROSTHETIC VALVE: PACEMAKER: MEASUREMENTS (cm) DIASTOLIC (NORMALS) SYSTOLIC (NORMALS) IVSd 0.8 (0.6-1.2) LA Diam 3.0 (1.9-4.0) LVEF 60-65% LVIDd 3.9 (3.5-5.7) LVIDs 2.7 (2.0-3.5) %FS 31% LVPWd 1.1 (0.6-1.2) Ao Diam 2.6 (2.0-3.7) 2 DIMENSIONAL ASSESSMENT: RIGHT ATRIUM: NORMAL LEFT ATRIUM: NORMAL RIGHT VENTRICLE: NORMAL LEFT VENTRICLE: NORMAL TRICUSPID VALVE: TRACE TRICUSPID REGURGITATION MITRAL VALVE: MILD MITRAL REGURGITATION PULMONIC VALVE: NORMAL AORTIC VALVE: MILD AORTIC REGURGITATION PERICARDIAL EFFUSION: NONE AORTIC ROOT: NORMAL LEFT VENTRICULAR WALL MOTION: NORMAL DOPPLER/COLOR FLOW: NORMAL COMMENTS: 1. NORMAL LEFT VENTRICULAR SYSTOLIC FUNCTION, EJECTION FRACTION 60-65%, NORMAL WALL MOTION 2. NORMAL DIASTOLIC FUNCTION 3. MILD MITRAL REGURGITATION 4. MILD AORTIC REGURGITATION TECHNOLOGIST: AJAY ARIAS
== END 2024-01-23 18:00 | disposition home or self-care (01) | DRG 643 ==
LOC: ER 14:45 → OBSVTOIN 18:17 → UNDOADMOB 18:17 → INTOOBSV 18:17 → ERHOLD 18:17 → 4TH 19:25 → ERHOLD 19:25 → 4TH 01-22 16:48 → ERHOLD 01-22 16:48 → OBSVTOIN 01-22 16:48
PROVIDERS: ADMIT Internal Medicine; ATTEND Hospitalist
PROC: 4A033R1 Measurement of Arterial Saturation, Peripheral, Percutaneous Approach (ICD-10-PCS; principal; 2024-01-20)
DX: E05.90 Thyrotoxicosis, unspecified without thyrotoxic crisis or storm (principal); I21.4 Non-ST elevation (NSTEMI) myocardial infarction; G81.94 Hemiplegia, unspecified affecting left nondominant side; I10 Essential (primary) hypertension; D50.9 Iron deficiency anemia, unspecified; R00.0 Tachycardia, unspecified; Z79.82 Long term (current) use of aspirin; Z79.899 Other long term (current) drug therapy; Z91.148 Patient's other noncompliance with medication regimen for other reason
CPT/HCPCS: 36415; 36600; 70450; 70496; 70498; 70551; 71045; 71275; 80048; 80061; 80076; 80307; 81001; 81025; 82077; 82550; 82728; 82805; 83036; 83540; 83735; 84439; 84443; 84466; 84481; 84484; 85025; 85379; 93005; 93306; 96360; 96361; 97161; 99285; J1720; J7030; Q9967